=== PATIENT | female | born 1965 | race Two or more races ===

== ENCOUNTER 2021-05-26 15:49 | Emergency (ER) | payer MEDICAID ==
[~2021-05-26] VITALS: Ht 152.4 cm; Wt 79.4 kg
[2021-05-26 16:08] VITALS: BP 113/79
[2021-05-26] MEDS ORDERED: IBUP-1957 PO (16:36)
[2021-05-26] MEDS ORDERED: BENZ-13 PO (16:36)
[2021-05-26] MEDS ORDERED: GUAI1TBM19 PO (16:36)
== END 2021-05-26 16:57 | disposition home or self-care (01) ==
LOC: ER 15:58
DX: U07.1 COVID-19 (principal); Z88.0 Allergy status to penicillin; Z79.899 Other long term (current) drug therapy